=== PATIENT | female | born 1995 | race Caucasian/White ===

== ENCOUNTER 2024-11-23 19:51 | Outpatient (CLI) | payer BC, SELFPAY ==
[2024-11-23] VITALS (14 sets, daily range): BP systolic 111–129; BP diastolic 64–90; PULSE 94–114; O2SAT 100
--- OUTSIDE RECORDS SUMMARY | 2024-11-23 20:08 | XMS_ITS | Encounter Summary ---
Author Organization [facility] Address [address] [place] [address] Care Team Providers Care Group Fitness Instructor Name Role Phone Jeanette Garcia PAPERBOARD MACHINE OPERATOR Primary Care Provider [phone] Encounter Details Date Type Department Care Team (Late st Contact Info) Description 05/29/2024 Aqwise Message Grow Mobile [facility] [address] [place] [address] Chan, [facility] Provider Proof of name change Social History Tobacco Use Types Packs/Day Years Used Date Smoking Tobacco: Never Passive Smoke Exposure: Never Smokeless Tobacco: Never Alcohol Use Standard Drinks/Week Comments Yes 1.7 (1 standard drink = 0.6 oz p ure alcohol) Comments No Sex and Gender Information Value Date Recorded Sex Assigned at Not on file Legal Sex Female 7:52 PM CDT Gender Identity Not on file Sexual Orientation Not on file documented as of this encounter Plan of Treatment Not on file documented as of this encounter Visit Diagnoses Not on filedocumented in this encounter Care Teams Group Fitness Instructor Relationship Specialty Start Date End Date Jeanette Garcia, SVITLANA [address] [place] [address] PCP - General NURSE PRACTITIONER 01/20/24 documented as of this encounter
--- OUTSIDE RECORDS SUMMARY | 2024-11-23 20:08 | XMS_ITS | Data Portability ---
Author Organization [facility] Address [address] [place] [address] [place] [address] Care Team Providers Care Rn Residential Name Role Phone NORRIS BERG Primary Care Provider [phone] Assessment Encounter Date Assessment Date Assessment LastModified by Organization Details LastModified Time 10/12/2024 10/12/2024 Patient is ___weeks . Discussed plan. [email or web address] Not available 10/12/2024 09:54:37 Plan of Treatment Reminders Order Date Submit Date Provider Last Modified By Organization Details Last Modified Time Details Appointments OB ROUTINE 2024 03:00P Julissa FLORES MD Not available Not available Not available OB ROUTINE 2024 03:00P Julissa FLORES MD Not available Not available Not available OB ROUTINE 2024 03:15P Julissa FLORES MD Not available Not available Not available Lab None recorded . Referral None recorded . Procedures None recorded . Surgeries None recorded . Imaging US, obstetri c, follow-u p 2024 025 [email or web address] [address], [address], [place], [address], 11/19/2024 18:47:56 US, obstetri c, follow-u p 2024 025 [email or web address] [address], [address], [place], [address], 10/15/2024 21:28:09 Medication Orders None recorded . Patient TargetsNo targets recorded. Patient InstructionsNo instructions recorded. Reason for Referral None Reported. Results Created Date Observation Date Name Description Value Unit Range Abnormal Flag Note LastModifiedBy Organization Detail LastModifiedTime 09/25/1909/24/2024 HEMOG LOBIN (HGB) HGB 11.6 g/dL (based on docume nted legal sex) 11.6-1 5.4 Not Available [facility] (Lab) [address] [place], [address], 09/25/2024 12:55:13 09/25/1909/24/2024 HEMAT OCRIT (HCT) HCT 35.2 % (based on docume nted legal sex) 34.0-4 5.0 Not Available [facility] (Lab) [address] [place], [address], 09/25/2024 12:55:14 09/25/1909/24/2024 GTT - GESTA GERMAN L LEESA Burch, ACOG OB glucose, 1 hour screen 147 mg/dL 70-135 high Not Available [facility] (Lab) [address] [place], [address], 09/25/2024 12:55:14 09/25/1909/24/2024 HIV 1/2 ANTIG EN/AN TIBOD Y, REFLE X CONFI RMATI ON HIV antigen/anti body Nonrea ctive nonrea ctive HIV-1 antig en and HIV-1 /HIV- 2 antib odies were not detec ahmet. No labor atory evide nce of HIV infec tion. Not Available [facility] (Lab) [address], [place], [address], 09/25/2024 12:55:14 09/25/1909/24/2024 RPR SCREE N, REFLE X TITER /CONF IRMAT ION RPR qualitative Nonrea ctive nonrea ctive Not Available [facility] (Lab) [address] [place], [address], 09/25/2024 12:55:15 09/29/1909/28/2024 GTT - GESTA GERMAN L, 3 HOUR, ACOG glucose, fasting acog 77 mg/dL 70-94 Not Available [facility] (Lab) [address] [place], [address], 09/29/2024 04:43:16 09/29/19 25 09/28/2024 GTT - GESTA GERMAN L, 3 HOUR, ACOG glucose, 1 hour acog 144 mg/dL 70-179 Not Available [facility] (Lab) [address] [place], [address], 09/29/2024 04:43:16 09/29/19 25 09/28/2024 GTT - GESTA GERMAN L, 3 HOUR, ACOG glucose, 2 hour acog 126 mg/dL 70-154 Not Available [facility] (Lab) [address] [place], [address], 09/29/2024 04:43:16 09/29/19 25 09/28/2024 GTT - GESTA GERMAN L, 3 HOUR, ACOG glucose, 3 hour acog 120 mg/dL 70-139 Not Available [facility] (Lab) [address] [place], [address], 09/29/2024 04:43:16 11/20/19 25 11/19/2024 CULTU RE: GROUP B STREP SCREE N, REFLE X SUSCE PTIBI LITY result report SEE RESULT S BELOW abnormal Test: Cultu re: Group B Strep , Refle x Susce ptibi lity ([facility] ) Speci men Sourc e: Vagin a/Rec areli Speci men Type: Vagin al/Re ctal Speci men Date: 025 1541 Resul t Date: 2024 0959 Resul t Statu s: Final resul t Abnor mal: Yes Resul ting Lab: [facility] [address] [facility] [address] Tel: CULTU RE ----- ----- ----- --- Posit jacquelin for Strep tococ cus agala ctiae (Grou p B) (Abno rmal) Clind amyci n susce ptibl e, eryth romyc in resis tant. The clind amyci n induc tion test (D-t est) is negat jacquelin, there fore clind amyci n shoul d be clini keon effec tive again st this isola te. Not Available [facility] (Lab) [address], [place], [address], 11/23/2024 11:03:18 10/16/1910/15/2024 US, obste tric, follo w-up No observ ation record ed. [email or web address] [facility] [address], [place], [address], 10/15/2024 18:41:44 10/16/19 25 10/15/2024 US, obste tric, follo w-up No observ ation record ed. [email or web address] [address] [place], [address], 10/15/2024 21:32:58 11/20/19 25 11/19/2024 US, obste tric, follo w-up No observ ation record ed. [email or web address] [facility] [address], [place], [address], 11/19/2024 18:23:52 11/20/19 25 11/19/2024 US, obste tric, follo w-up No observ ation record ed. [email or web address] [address], [place], [address], 11/19/2024 18:53:45 Result Notes None recorded. Problems Name Problem SNOMED Code Status Onset Date Resolution Date Notes Provider Name and Address Organization Details Recorded Time 12338438 Active 2024 Viki barrera [facility] 16:21:17 Large for gestation age fetus 920050065 Active 98% at 24 weeks Nikita Connelly MD [address], [place], [address], [facility] 17:00:10 Problem Notes None recorded. Procedures Surgical History Date Name Laterality Status Provider Name and Address Organization Details Recorded Time 4 Date of Last Pap Smear completed [facility] 05/01/2024 14:36:16 2 Orthopedic Surgery completed [facility] 05/01/2024 14:54:06 Imaging Results None recorded. Procedure Notes None recorded. Medical Equipment None Reported. Allergies No known drug allergies Medications Name Sig Start Date Stop Date Status Note LastModified by Organization Details LastModified Time amitriptyline 50 mg tablet active Not Available Not Available No t Available ondansetron 8 mg disintegrating tablet TAKE 1 TABLET BY MOUTH 4 TIMES A DAY NEEDED active Not Available Not Available No t Available azelastine 137 mcg (0.1 %) nasal spray active Not Available Not Available Not Available sumatriptan active Not Available Not A vailable Not Available Fioricet active Not Available Not Avai lable Not Available Vitals Date Recorded Body weight Systolic And Diastolic Provider Name and Address Organization Details Last Updated DateTime 10/12/2024 16998.78777 g 138/90 mm[Hg] Tatiana Skinner [facility] 10/12/2024 09:55:37 Date Recorded Body weight Body mass index (BMI) Body height Systolic And Diastolic Provider Name and Address Organization Details Last Updated DateTime 11/02/2024 55038.230 624 g 33.5 kg/m2 162.56 cm 140/91 mm[Hg] Casi Romeroney [facility] 11/02/2024 14:36:46 Date Recorded Body height Body mass index (BMI) Body weight Systolic And Diastolic Provider Name and Address Organization Details Last Updated DateTime 11/19/2024 162.56 cm 34.2 kg/m2 10803.88 g 142/88 mm[Hg] KADE Lim [facility] 11/19/2024 16:25:08 Social History Question Answer Notes LastModified by Organizat ion Details LastModified Time Do You Have An Advance Directive? No [email or web address] Information n ot available 05/01/2024 Are You Blind Or Do You Have Difficulty Seeing? No [email or web address] Information not available 05/01/2024 What Is Your Level Of Caffeine Consumption? Moderate [email or web address] Information not available 05/01/2024 How Much Tobacco Do You Chew? None Information not available 05/01/2024 In The 14 Days Before Symptom Onset, Have You Had Close Contact With A Laboratory-confirme d COVID-19 While That Case Was Ill? No Information n ot available 05/01/2024 In The 14 Days Before Symptom Onset, Have You Had Close Contact With A Person Who Is Under Investigation For COVID-19 While That Person Was Ill? No [email or web address] Information not available 05/01/2024 Have You Been To An Area Known To Be High Risk For COVID-19? No [email or web address] Information not available 05/01/2024 Are You Deaf Or Do You Have Serious Difficulty Hearing? No [email or web address] Information not available 05/01/2024 What Type Of Diet Are You Following? REGULAR [email or web address] Information n ot available 05/01/2024 What Is The Highest Grade Or Level Of School You Have Completed Or The Highest Degree You Have Received? [id number] [email or web address] Information not available 05/01/2024 Are There Any Guns Present In Your Home? Yes [email or web address] Information not available 05/01/2024 Do You Use Protection During Sex? No [email or web address] Information not available 05/01/2024 Do You Use Your Seat Belt Or Car Seat Routinely? Yes [email or web address] Information not available 05/01/2024 Do You Have Smoke And Carbon Monoxide Detectors In Your Home? Yes Information not available 05/01/2024 How Much Tobacco Do You Smoke? No [email or web address] Information not available 05/01/2024 Do You Use Sunscreen Routinely? Yes [email or web address] Information not available 05/01/2024 Have You Used IV Drugs? No [email or web address] Information not available 05/01/2024 Sex: Unknown Functional Status Question Answer Note LastModified by Organizat ion Details LastModified Time Do you use any illicit or recreational drugs? No [email or web address] Information not available 05/01/2024 What is your level of alcohol consumption? Occasional [email or web address] Information not available 05/01/2024 Are you able to walk? YESWOREST [email or web address] Information not available 05/01/2024 What is your exercise level? Moderate [email or web address] Information not available 05/01/2024 Mental Status None recorded. Family History Relationship Description Onset Age of this Age Resolved Age Notes LastModified by Organization Details LastModified Time Unspecified Relation Family history unknown [email or web address] Not available 2023 14:36:16 Medical History Condition Response Headaches Y Gynecological History Statement/Question Response Abnormal Pap N Flow Moderate Date of LMP 03/07/2024 On BCP's at Conception? N N Was last menstrual period normal Y STIs/STDs N HPV Vaccine Y Duration of Flow (days) 4 Current Control Method Date of control 02/12/2024 Are cycles usually normal Y Frequency of Cycle (Q days) 28 Sexually Active? Y Age of first menstrual cycle 13 Date of Last Pap Smear 01/16/2024 Sexual Problems? N Desired Control Method None LMP Approximate N Obstetrics History GPAL:G 1 P 0 0 0 0 Past Encounters Encounter ID Performer Location Encounter Start Date Encounter Closed Date Diagnosis/Indication Diagnosis SNOMED-CT Code Diagnosis ICD10 Code Diagnosis Note [id number] RENUKA FLORES MD [facility] [address] [address] 05/01/2024 14:18:14 05/01/2024 14:41:41 [id number] RENUKA FLORES MD [facility] [address] [address] 05/01/2024 14:18:58 05/01/2024 15:46:12 test positive 553990652 Z32.01 1. Exam today within normal limits.2. Ultrasound today confirms GA and viability. EDC . GC/Kelvin a testing done: will f/u as indicated. 4. ACOG guidelines and plan of care for reviewed with patient. All questions answered.5 . Return to office at 12 weeks for new OB visit6. Will need new OB labs at next visit.7. Genetic screening: declines. Migraine 51938118 G43.90 9 - controlled on amitriptyl ine, PRN sumatripta n and fioricet- ok to continue amitriptyl ine, low risk of defects; possible small risk of PTL and FGR; ok for PRN sumatripta n; try to avoid fioricet if possible Nausea and vomiting 1693 1999 R11.2 - will trial zofran PRN [id number] Nikita Connelly MD [facility] [address],[place] [address] 06/01/2024 15:23:23 06/04/2024 08:22:04 screening 687370572 Z36.82 Z3A.12 [id number] MD [facility] [address] [address] 06/01/2024 15:25:00 06/01/2024 16:53:00 Routine care 691819242 Z34.91 [id number] RENUKA FLORES MD [facility] [address],[place] [address] 06/29/2024 15:48:13 07/02/2024 11:50:38 Routine care 276733577 Z34.91 [id number] Nikita Connelly MD [facility] [address],[place] [address] 07/23/2024 14:23:35 07/23/2024 15:38:06 screening for malformation 881611734 Z36.3 Z3A.19 [id number] RENUKA FLORES MD [facility] [address] [place] [address] 07/23/2024 14:27:16 07/23/2024 16:19:59 Routine care 335813856 Z34.91 [id number] Nikita Connelly MD [facility] [address] [address] 08/24/2024 15:19:27 08/24/2024 16:47:21 screening 200810763 Z36.2 O36.62X9 Z3A.24 [id number] MD [facility] [address] [address] 08/24/2024 15:20:13 08/27/2024 11:41:12 Routine care 876893785 Z34.02 [id number] MD [facility] [address] [address] 09/24/2024 14:50:50 09/24/2024 16:14:07 Nausea and vomiting 35257765 R11.2 [id number] MD [facility] [address],[place] [address] 10/12/2024 09:40:31 10/12/2024 10:48:27 Third trimester 42495550 Z34.03 Exceptiona lly large at 67892158 P08.0 [id number] Nikita Connelly MD [facility] [address],[place] [address] 10/15/2024 17:22:57 10/15/2024 18:14:20 Excessive growth affecting management of mother 21545237 O36.63X0 Z3A.31 [id number] MD [facility] [address],[place] [address] 11/02/2024 14:23:36 11/05/2024 07:37:14 Elevated blood-pressure reading without diagnosis of hypertension 519873103 R03.0 Gestation period, 34 weeks 09730253 Z3A.34 [id number] RENUKA FLORES MD [facility] [address],[place] [address] 11/19/2024 15:27:03 11/19/2024 16:09:45 Excessive growth affecting management of mother 70505040 O36.63X0 Z3A.36 [id number] RENUKA FLORES MD [facility] [address],[place] [address] 11/19/2024 15:27:14 11/22/2024 17:15:41 Third trimester 69080014 Z34.03 Health Concerns Section Related Observation LastModified by Organization Detai ls LastModified Time None Recorded Concern Status LastModified by Organization Details LastModified Time None Recorded Advance Directives Directive N: Payers Insurance Date Sequence Insurance Name Policy Number Policy Carranza Covered Member ID Carranza Member ID Guarantor Name 11/23/2024 1 [place] [id number] Servando Collins Alison [id number] Valentina Alison OBGyn Episode Ob Episode Information Episode Created Date Number of Fetuses Patient Bloodtype Patient rh Status Prepregnancy Weight lbs Domestic Partner Domestic Partner Phone Father Name Rock Singer Status 06/01/19 25 1 O Positive 173 Servando Alison OPEN Fetus Data First Name Last Name Admitted to NICU Weight (g) Sex Living Outcome Pediatric Complications Fetus ID Race Codes Race Delivery Type [id number] Problems Problem Notes Problem Name Start Date End Date Resolution Snomed Code Not e Large for gestation age fetus 98% at 24 weeks Bayron Calculation Initial Bayron Date Initial Exam Date Initial Exam Provider Initial Ultrasound Date Last Menstrual Period Date Ultra Sound Weeks Gestation 12/12/2024 06/01/2024 05/01/2024 03/07/2024 8 Eighteen To Twenty Week Bayron Update Ultra Sound Date Fundal Height At Umbil Quickening Date Ultra Sound Latest Weeks Gestation Final Bayron Confirmed By Final Bayron Confirmed Date Final Bayron Date Ultra Sound Latest Days Gestation 0 [email or web address] 06/30/2024 12/13/19 25 0 Pre-jane Flowsheet Flowsheet Date 06/01/2024 Mckenzie Score Blood Edema Fundus Height Fundus Units Glucose Ketones Leukocytes Nitrite Labor Signs Protein Cervic Dilation Cervic Effacement Cervic Station Type Weight in lbs Pre/Post Dialysis Refused BP Diastolic BP Location Tested BP Systolic BP Type Fetus Heart Rate Present Fetus Movement Comments Flowsheet Date 06/01/2024 Mckenzie Score Blood Edema Fundus Height Fundus Units Glucose Ketones Leukocytes Nitrite Labor Signs Protein Cervic Dilation Cervic Effacement Cervic Station Type Weight in lbs Pre/Post Dialysis Refused Weight 173.177769955645 BP Diastolic BP Location Tested BP Systolic BP Type 92 L arm 133 sitting Fetus Heart Rate Present A 146 Fetus Movement Comments Patient presents to [facility] care. otherwise uncomplicated. No nausea or cramping. NT/NB wnl today, declines NIPT. Will draw new OB labs today. RTC 4 weeks for routine care. Flowsheet Date 06/29/2024 Mckenzie Score Blood Edema Fundus Height Fundus Units Glucose Ketones Leukocytes Nitrite Labor Signs Protein Cervic Dilation Cervic Effacement Cervic Station neg none Type Weight in lbs Pre/Post Dialysis Refused 178.379456719884 BP Diastolic BP Location Tested BP Systolic BP Type 89 L arm 136 sitting Fetus Heart Rate Present A 145 Fetus Movement A No Comments Patient c/o slight nausea. N o cramping or bleeding. Still having some fatigue. New OB labs wnl. Discussed anatomy US for next visit. RTC 4 weeks. Flowsheet Date 07/23/2024 Mckenzie Score Blood Edema Fundus Height Fundus Units Glucose Ketones Leukocytes Nitrite Labor Signs Protein Cervic Dilation Cervic Effacement Cervic Station Type Weight in lbs Pre/Post Dialysis Refused BP Diastolic BP Location Tested BP Systolic BP Type Fetus Heart Rate Present Fetus Movement Comments Flowsheet Date 07/23/2024 Mckenzie Score Blood Edema Fundus Height Fundus Units Glucose Ketones Leukocytes Nitrite Labor Signs Protein Cervic Dilation Cervic Effacement Cervic Station neg none neg Type Weight in lbs Pre/Post Dialysis Refused Weight 179.715433485127 BP Diastolic BP Location Tested BP Systolic BP Type 82 R arm 139 sitting Fetus Heart Rate Present A Present Fetus Movement A No Comments Doing well, has not yet felt movement. No cramping or bleeding. Having a boy! Anatomy incomplete; need AA and 4CH views. EFW 84%. Repeat in 4 weeks to complete anatomy. RTC 4 weeks. GOing to [place] next month! Travel precautions reviewed. Flowsheet Date 08/24/2024 Mckenzie Score Blood Edema Fundus Height Fundus Units Glucose Ketones Leukocytes Nitrite Labor Signs Protein Cervic Dilation Cervic Effacement Cervic Station Type Weight in lbs Pre/Post Dialysis Refused BP Diastolic BP Location Tested BP Systolic BP Type Fetus Heart Rate Present Fetus Movement Comments Flowsheet Date 08/24/2024 Mckenzie Score Blood Edema Fundus Height Fundus Units Glucose Ketones Leukocytes Nitrite Labor Signs Protein Cervic Dilation Cervic Effacement Cervic Station Type Weight in lbs Pre/Post Dialysis Refused BP Diastolic BP Location Tested BP Systolic BP Type Fetus Heart Rate Present A 144 Fetus Movement Comments no complaints, no problems, routine care, no contractions, no vaginal bleeding, no loss of fluid, no cramping Flowsheet Date 09/24/2024 Mckenzie Score Blood Edema Fundus Height Fundus Units Glucose Ketones Leukocytes Nitrite Labor Signs Protein Cervic Dilation Cervic Effacement Cervic Station 28 cm Type Weight in lbs Pre/Post Dialysis Refused Weight 189.696277908678 BP Diastolic BP Location Tested BP Systolic BP Type 80 L arm 120 sitting Fetus Heart Rate Present A 145 Present Fetus Movement A Yes Comments no complaints, no problems, routine care, no contractions, no vaginal bleeding, no loss of fluid, no cramping Flowsheet Date 10/12/2024 Mckenzie Score Blood Edema Fundus Height Fundus Units Glucose Ketones Leukocytes Nitrite Labor Signs Protein Cervic Dilation Cervic Effacement Cervic Station Type Weight in lbs Pre/Post Dialysis Refused 189.954171922183 BP Diastolic BP Location Tested BP Systolic BP Type 90 L arm 138 sitting Fetus Heart Rate Present A 148 Present Fetus Movement A Yes Comments no complaints, no problems, routine care, no contractions, no vaginal bleeding, no loss of fluid, no cramping Flowsheet Date 10/15/2024 Mckenzie Score Blood Edema Fundus Height Fundus Units Glucose Ketones Leukocytes Nitrite Labor Signs Protein Cervic Dilation Cervic Effacement Cervic Station Type Weight in lbs Pre/Post Dialysis Refused BP Diastolic BP Location Tested BP Systolic BP Type Fetus Heart Rate Present Fetus Movement Comments Flowsheet Date 11/02/2024 Mckenzie Score Blood Edema Fundus Height Fundus Units Glucose Ketones Leukocytes Nitrite Labor Signs Protein Cervic Dilation Cervic Effacement Cervic Station Type Weight in lbs Pre/Post Dialysis Refused 195.230596589706 BP Diastolic BP Location Tested BP Systolic BP Type 91 L arm 140 sitting Fetus Heart Rate Present Fetus Movement A Yes Comments Doing well, good movem ent. No cramping or bleeding. Discussed elevated BP today, will continue to monitor closely. Asymptomatic. Discussed warning signs. Discussed GBS swab for next visit. RTC 2 weeks. Flowsheet Date 11/19/2024 Mckenzie Score Blood Edema Fundus Height Fundus Units Glucose Ketones Leukocytes Nitrite Labor Signs Protein Cervic Dilation Cervic Effacement Cervic Station Type Weight in lbs Pre/Post Dialysis Refused BP Diastolic BP Location Tested BP Systolic BP Type Fetus Heart Rate Present Fetus Movement Comments Flowsheet Date 11/19/2024 Mckenzie Score Blood Edema Fundus Height Fundus Units Glucose Ketones Leukocytes Nitrite Labor Signs Protein Cervic Dilation Cervic Effacement Cervic Station Type Weight in lbs Pre/Post Dialysis Refused Weight 199.363446789449 BP Diastolic BP Location Tested BP Systolic BP Type 88 L arm 142 sitting Fetus Heart Rate Present A Present Fetus Movement A Yes Comments Doing well, good movem ent. No cramping or bleeding. EW 95%, AC 99%. Considering 39 week induction. GBS collected today. RTC 1 week. Menstrual History Last Menstrual Date Menses Monthly On Bcp Conception Prior Menses Frequency Hcg Plus Date Menarche Onset Age 1003/07/20[birth year] Delivery Information Delivery Date Delivery Type Labor Anesthesia Weeks Gestation Incision Type Labor Labor Length Hrs Delivered By Post Complications Tubal Sterilization Discharge Date Comments Discharge Information Feeding Method Contraceptive Method Maternal HG B and HCT Levels
--- OUTSIDE RECORDS SUMMARY | 2024-11-23 20:08 | XMS_ITS | Clinical Summary ---
Author Organization [facility] Address [address] [place] [address] Care Team Providers Care Neonatal Pediatric Nurse Name Role Phone Jeanette Garcia TOOL REPAIRER BENCH Primary Care Provider Allergies Active Allergy Reactions Criticality Noted Date Comments Nickel Rash Low 06/18/2011 Medications SUMAtriptan (IMITREX) 50 MG tablet Active butalbital-aceta minophen-caffein e (FIORICET) 50-300-40 MG capsuleIndicatio ns:Migraine without aura, with intractable migraine, so stated, with status migrainosus Take 1 capsule by mouth every 6 (six) hours as needed for Migraine or Headaches. 120 capsule 1 4 Active azelastine 0.1 % nasal sprayIndications :Nasal congestion 2 sprays by Nasal route 2 (two) times daily as needed for Rhinitis. Use in each nostril as directed 10 mL 3 5 Active amitriptyline (ELAVIL) 50 MG tabletIndication s:Migraine without aura, with intractable migraine, so stated, with status migrainosus TAKE 1 TABLET BY MOUTH EVERY DAY 90 tablet 1 5 Active Encounters Date Type Department Care Team Description 09/20/2024 Telephone [facility] - [place] [address] [address] [place] [address] Jeanette Garcia, TOOL REPAIRER BENCH Appointment Request from Last 3 Months Family History Medical History Relation Comments Diabetes Mother Relation Status Comments Mother Social History Tobacco Use Types Packs/Day Years Used Date Smoking Tobacco: Never Passive Smoke Exposure: Never Smokeless Tobacco: Never Tobacco Cessation:Counseling Given: No Alcohol Use Standard Drinks/Week Comments Yes 1.7 (1 standard drink = 0.6 oz p ure alcohol) Comments No Sex and Gender Information Value Date Recorded Sex Assigned at Not on file Legal Sex Female 7:52 PM CDT Gender Identity Not on file Sexual Orientation Not on file Last Filed Vital Signs Vital Sign Reading Time Taken Comments Blood Pressure 135/92 05/28/2024 1:26 PM STRIP MACHINE TENDER Pulse 93 05/28/2024 1:26 PM STRIP MACHINE TENDER Temperature 37.4 C (99.4 F) 05/28/2024 1:26 PM STRIP MACHINE TENDER Respiratory Rate 19 05/28/2024 1:26 PM STRIP MACHINE TENDER Oxygen Saturation 99% 05/28/2024 1:26 PM STRIP MACHINE TENDER Inhaled Oxygen Concentration - - Weight 79.2 kg (174 lb 9.6 oz) 05/28/2024 1:26 P M STRIP MACHINE TENDER Height 162.6 cm (5' 4) 05/28/2024 1:26 PM STRIP MACHINE TENDER Body Mass Index 29.97 05/28/2024 1:26 PM STRIP MACHINE TENDER Plan of Treatment Health Maintenance Due Date Last Done Comments Cervical Cancer Screening Pap Smear (Age 21 to 29) Every 3 Years 1996 Cervical Cancer Screening 1996 COVID-19 Vaccine ( season) 2024 04/05/2022, 04/16/2021, 08/22/2020, Additional history exists PHQ-2 (Physician [place]) 05/16/2024 Annual Physical 01/19/2025 01/20/2024 DTaP, Tdap and Td Vaccines (8 - Td or Tdap) 11/03/2028 11/03/2018, 01/20/2007, 01/03/2001, Additional history exists Hepatitis B Vaccines Completed 1996, 1996, 1996 HPV Vaccines Completed 10/15/2011, 04/16, 10/15/2010 Meningococcal Vaccine Completed 02/25/2012, 008 Hepatitis C Completed 01/20/2024 Meningococcal B Vaccine Aged Out No l onger eligible based on patient's age to complete this topic Pneumococcal Vaccine: Pediatrics (0 to 5 Years) and At-Risk Patients (6 to 49 Years) Aged Out No longer eligible based on patient's age to complete this topic RSV Immunizations Under 20 Months Aged Out No longer eligible based on patient's age to complete this topic Procedures Procedure Name Priority Date/Time Associated Diagnosis Comments HEPATITIS C ANTIBODY Routine 01/20/2024 1:34 PM CDT Need for hepatitis C screening test from Last 3 Months or Most Recently Relevant to Health Maintenance Results * HEPATITIS C ANTIBODY (01/20/2024 1:34 PM CDT) HEPATITIS C AB NON-REACTI VE NON-REACT JACQUELIN 01/20/2024 9:41 PM CDT [facility] Comment: ANTIBODIES TO HCV NOT DETECTED. DOES NOT EXCLUDE THE POSSIBILITY OF EXPOSURE TO HCV. 01/20/2024 1:34 PM CDT us Jeanette Garcia NP LABORATORY Final Resul t [facility] [address] [place] [id number], [id number] from Last 3 Months or Most Recently Relevant to Health Maintenance Insurance [facility] [place] [id number] [facility] Care Teams Neonatal Pediatric Nurse Relationship Specialty Start Date End Date Jeanette Garcia NP [address] [place] [address] PCP - General NURSE PRACTITIONER 01/20/24
== END 2024-11-23 21:30 | disposition home or self-care (01) ==
LOC: ANHOBOP 20:07 → ANHOBPP 20:08
PROVIDERS: Visit Provider Obstetrics & Gynecology
DX: O36.8190 Decreased fetal movements, unspecified trimester, not applicable or unspecified (principal)
CPT/HCPCS: 99199

== ENCOUNTER 2024-12-05 05:56 | Inpatient (IN) | payer BC, SELFPAY ==
[2024-12-05] VITALS (225 sets, daily range): BP systolic 89–156; BP diastolic 37–105; PULSE 28–162; TEMP 36.4–37.6; O2SAT 87–100
--- NOTE | ~2024-12-05 | XR_ITS ---
XR abdomen/kub 1V 12/06/2024 05:56 Indication: AP portable chest Procedure: KUB Comparison: No prior studies for comparison. Findings: There is a serpiginous linear structure in the pelvis, likely foreign body. Nonspecific bow el gas pattern. Enlarged masslike density in the lower abdomen centrally, likely enlarged uterus. Impression: 1: Serpiginous linear structure in the pelvis located centrally, likely foreign body. Clinically rossy elate. Reviewed, dictated and finalized at location A. Impression: 1: Serpiginous linear structure in the pelvis located centrally, likely foreign body. Clinically correlate.
--- NOTE | ~2024-12-05 | XR_ITS ---
XR abdomen/kub 1V 12/06/2024 05:56 Indication: Post removal vaginal foreign body Procedure: KUB Comparison: 12/06/2024 Findings: Interval removal of serpiginous for body in the pelvis. Nonspecific bowel gas pattern. Prob able enlarged uterus. There are calcified phleboliths in the pelvis. Impression: 1: Interval removal of serpiginous radiodensity in the pelvis, consistent with foreign body removal. Reviewed, dictated and finalized at location A. Impression: 1: Interval removal of serpiginous radiodensity in the pelvis, consistent with foreign body removal.
--- OUTSIDE RECORDS SUMMARY | 2024-12-05 06:01 | XMS_ITS | Encounter Summary ---
Author Organization [facility] Address [address] [place] [address] Care Team Providers Care Maintenance Controller Name Role Phone Jeanette Garcia TREATING ENGINEER HELPER Primary Care Provider [phone] Encounter Details Date Type Department Care Team (Late st Contact Info) Description 05/29/2024 C3DNA Message Stupeflix [facility] [employer] [facility] [address] [address] Chan, [facility] Provider Proof of name change Social History [...] on filedocumented in this encounter Care Teams Maintenance Controller Relationship Specialty Start Date End Date Jeanette Garcia, VSITLANA [address] [place] [address] PCP - General NURSE PRACTITIONER 01/20/24 documented as of this encounter
--- OUTSIDE RECORDS SUMMARY | 2024-12-05 06:01 | XMS_ITS | Data Portability ---
Author Organization [facility] Address [address] [place] [address] [place] [address] Care Team Providers Care Importer Or Exporter Name Role Phone ANDREWS BERGELLE Primary Care Provider [phone] Assessment No assessment recorded. Plan of Treatment Reminders Order Date Submit Date Provider Last Modified By Organization Details Last Modified Time Details Appointments INDUCTION 2024 12:01A Julissa FLORES MD Not available Not available Not available OB ROUTINE 2024 03:00P Julissa FLORES MD Not available Not available Not available INDUCTION 2024 04:00P Julissa FLORES MD Not available Not available Not available OB ROUTINE 2024 03:15P Julissa FLORES MD Not available Not available Not available Lab None recorded. Referral None recorded. Procedures None recorded. Surgeries None recorded. Imaging US, obstetric , follow-up 2024 025 [email or web address] [facility] [address], [place], [address], 11/19/2024 18:47:56 US, obstetric , follow-up 2024 025 [email or web address] [facility] [address], [place], [address], 10/15/2024 21:28:09 Medication Orders None recorded. Patient TargetsNo targets recorded. Patient InstructionsNo instructions recorded. Reason for Referral None Reported. Results Created Date Observation Date Name Description Value Unit Range Abnormal Flag Note LastModifiedBy Organization Detail LastModifiedTime 09/25/192025 HEMOG LOBIN (HGB) HGB 11.6 g/dL (based on docume nted legal sex) 11.6-[address] [facility] (Lab) [address], [place], [address], 09/25/2024 12:55:13 09/25/19 25 09/24/2024 HEMAT OCRIT (HCT) HCT 35.2 % (based on docume nted legal sex) 34.0-[address] [facility] (Lab) [address], [place], [address], 09/25/2024 12:55:14 09/25/19 25 09/24/2024 GTT - GESTA GERMAN L SCREE N, ACOG OB glucose, 1 hour screen 147 mg/dL 70-135 high Not Available [facility] (Lab) [address], [place], [address], 09/25/2024 12:55:14 09/25/19 25 09/24/2024 HIV 1/2 ANTIG EN/AN TIBOD Y, REFLE X CONFI RMATI ON HIV antigen/anti body Nonrea ctive nonrea ctive HIV-1 antig en and HIV-1 /HIV- 2 antib odies were not detec ahmet. No labor atory evide nce of HIV infec tion. Not Available [facility] (Lab) [address], [place], [address], 09/25/2024 12:55:14 09/25/19 25 09/24/2024 RPR SCREE N, REFLE X TITER /CONF IRMAT ION RPR qualitative Nonrea ctive nonrea ctive Not Available [facility] (Lab) [address] [place], [address], 09/25/2024 12:55:15 09/29/19 25 09/28/2024 GTT - GESTA GERMAN L, 3 HOUR, ACOG glucose, fasting acog 77 mg/dL 70-94 Not Available [facility] (Lab) [address], [place], [address], 09/29/2024 04:43:16 09/29/19 25 09/28/2024 GTT - GESTA GERMAN L, 3 HOUR, ACOG glucose, 1 hour acog 144 mg/dL 70-179 Not Available [facility] (Lab) [address], [place], [address], 09/29/2024 04:43:16 09/29/19 25 09/28/2024 GTT - GESTA GERMAN L, 3 HOUR, ACOG glucose, 2 hour acog 126 mg/dL 70-154 Not Available [facility] (Lab) [address], [place], [address], 09/29/2024 04:43:16 09/29/19 25 09/28/2024 GTT - GESTA GERMAN L, 3 HOUR, ACOG glucose, 3 hour acog 120 mg/dL 70-139 Not Available [facility] (Lab) [address] [place], [address], 09/29/2024 04:43:16 11/20/19 25 11/19/2024 CULTU RE: GROUP B STREP SCREE N, REFLE X SUSCE PTIBI LITY result report SEE RESULT S BELOW abnormal Test: Cultu re: Group B Strep , Refle x Susce ptibi lity ([facility] ) Speci men Sourc e: Vagin a/Rec areli Speci men Type: Vagin al/Re ctal Speci men Date: 025 1541 Resul t Date: 2024 0959 Resul t Statu s: Final resul t Abnor mal: Yes Philly pierre Lab: [facility] [address] [facility] [address] Tel: CULTU RE ----- ----- ----- --- Posit jacquelin for Strep tococ cus agala ctiae (Grou p B) (Abno rmal) Clind amyci n susce ptibl e, eryth romyc in resis tant. The clind amyci n induc tion test (D-t est) is negat jacquelin, there fore clind amyci n shoul d be clini keon effec tive again st this isola te. Not Available [facility] (Lab) [address], [place], [address], 11/23/2024 11:03:18 10/16/19 25 10/15/2024 US, obste tric, follo w-up No observ ation record ed. [email or web address] [facility] [address], [place], [address], 10/15/2024 18:41:44 10/16/19 25 10/15/2024 , obste tric, follo w-up No observ ation record ed. [email or web address] [facility] [address], [place], [address], 10/15/2024 21:32:58 11/20/19 25 11/19/2024 , obste tric, follo w-up No observ ation record ed. [email or web address] [facility] [address], [place], [address], 11/19/2024 18:23:52 11/20/19 25 11/19/2024 , obste tric, follo w-up No observ ation record ed. [email or web address] [facility] [address], [place], [address], 11/19/2024 18:53:45 Result Notes None recorded. Problems Name Problem SNOMED Code Status Onset Date Resolution Date Notes Provider Name and Address Organization Details Recorded Time Large for gestation age fetus Active 98% at 24 weeks Nikita Connelly MD [address], [place], [address], [place] [facility] 04/11/202 5 17:00:10 11279354 Active 2024 [facility] 16:21:17 Problem Notes None recorded. Procedures Surgical History Date Name Laterality Status Provider Name and Address Organization Details Recorded Time 4 Date of Last Pap Smear completed [facility] 05/01/2024 14:36:16 2 Orthopedic Surgery completed [facility] 05/01/2024 14:54:06 Imaging Results None recorded. [...] Not Available Vitals Date Recorded Body weight Body mass index (BMI) Body height Systolic And Diastolic Provider Name and Address Organization Details Last Updated DateTime 11/02/2024 65103.230 624 g 33.5 kg/m2 162.56 cm 140/91 mm[Hg] Casi Arreola [facility] 11/02/2024 14:36:46 Date Recorded Body height Body mass index (BMI) Body weight Systolic And Diastolic Provider Name and Address Organization Details Last Updated DateTime 11/19/2024 162.56 cm 34.2 kg/m2 04003.88 g 142/88 mm[Hg] KADE Lim [facility] 11/19/2024 16:25:08 Date Recorded Body height Body mass index (BMI) Body weight Systolic And Diastolic Provider Name and Address Organization Details Last Updated DateTime 11/28/2024 162.56 cm 34.8 kg/m2 39092.25 g 126/86 mm[Hg] KADE Lim [facility] 11/28/2024 16:17:07 Social History Question Answer Notes LastModified by Organizat ion Details LastModified Time Do You Have An Advance Directive? No Information n ot available 05/01/2024 Are You Blind Or Do You Have Difficulty Seeing? No Information not available 05/01/2024 What Is Your Level Of Caffeine Consumption? Moderate [email or web address] Information not available 05/01/2024 How Much Tobacco Do You Chew? None [email or web address] Information not available 05/01/2024 In The 14 Days Before Symptom Onset, Have You Had Close Contact With A Laboratory-confirme d COVID-19 While That Case Was Ill? No Information n ot available 05/01/2024 In The 14 Days Before Symptom Onset, Have You Had Close Contact With A Person Who Is Under Investigation For COVID-19 While That Person Was Ill? No [email or web address] Information not available 05/01/2024 Have You Been To An Area Known To Be High Risk For COVID-19? No [email or web address] Information not available 05/01/2024 Are You Deaf Or Do You Have Serious Difficulty Hearing? No [email or web address] Information not available 05/01/2024 What Type Of Diet Are You Following? REGULAR [email or web address] Information n ot available 05/01/2024 What Is The Highest Grade Or Level Of School You Have Completed Or The Highest Degree You Have Received? [id number] Information not available 05/01/2024 Are There Any Guns Present In Your Home? Yes [email or web address] Information not available 05/01/2024 Do You Use Protection During Sex? No [email or web address] Information not available 05/01/2024 Do You Use Your Seat Belt Or Car Seat Routinely? Yes [email or web address] Information not available 05/01/2024 Do You Have Smoke And Carbon Monoxide Detectors In Your Home? Yes [email or web address] Information not available 05/01/2024 How Much Tobacco Do You Smoke? No [email or web address] Information not available 05/01/2024 Do You Use Sunscreen Routinely? Yes [email or web address] Information not available 05/01/2024 Have You Used IV Drugs? No [email or web address] Information not available 05/01/2024 Sex: Unknown Functional Status Question Answer Note LastModified by Organizat ion Details LastModified Time Do you use any illicit or recreational drugs? No Information not available 05/01/2024 What is your level of alcohol consumption? Occasional [email or web address] Information not available 05/01/2024 Are you able to walk? YESWOREST [email or web address] Information not available 05/01/2024 What is your exercise level? Moderate [email or web address] Information not available 05/01/2024 Mental Status None recorded. Family History Relationship Description Onset Age of this Age Resolved Age Notes LastModified by Organization Details LastModified Time Unspecified Relation Family history unknown [email or web address] Not available 2023 14:36:16 Medical History Condition [...] SNOMED-CT Code Diagnosis ICD10 Code Diagnosis Note [id number] RENUKA FLORES MD [facility] [address] [address] 05/01/2024 14:18:14 05/01/2024 14:41:41 [id number] RENUKA FLORES MD [facility] [address] [address] 05/01/2024 14:18:58 05/01/2024 15:46:12 test positive 249180529 Z32.01 1. Exam today within normal limits.2. Ultrasound today confirms GA and viability. EDC . GC/Kelvin a testing done: will f/u as indicated. 4. ACOG guidelines and plan of care for reviewed with patient. All questions answered.5 . Return to office at 12 weeks for new OB visit6. Will need new OB labs at next visit.7. Genetic screening: declines. Migraine 22106691 G43.90 9 - controlled on amitriptyl ine, PRN sumatripta n and fioricet- ok to continue amitriptyl ine, low risk of defects; possible small risk of PTL and FGR; ok for PRN sumatripta n; try to avoid fioricet if possible Nausea and vomiting 1693 1999 R11.2 - will trial zofran PRN [id number] Nikita [facility] MD [facility] [address],[place] [address] 06/01/2024 15:23:23 06/04/2024 08:22:04 screening 177182305 Z36.82 Z3A.12 [id number] RENUKA FLORES MD [facility] [address],[place] [address] 06/01/2024 15:25:00 06/01/2024 16:53:00 Routine care 419275082 Z34.91 [id number] RENUKA FLORES MD [facility] [address],[place] [address] 06/29/2024 15:48:13 07/02/2024 11:50:38 Routine care 236064055 Z34.91 [id number] Nikita [facility] MD [facility] [address],[place] [address] 07/23/2024 14:23:35 07/23/2024 15:38:06 screening for malformation 154610418 Z36.3 Z3A.19 [id number] RENUKA FLORES MD [facility] [address],[place] [address] 07/23/2024 14:27:16 07/23/2024 16:19:59 Routine care 013443987 Z34.91 [id number] MD [facility] [address],[place] [address] 08/24/2024 15:19:27 08/24/2024 16:47:21 screening 263084224 Z36.2 O36.62X9 Z3A.24 [id number] MD [place] [address],[place] [address] 08/24/2024 15:20:13 08/27/2024 11:41:12 Routine care 003894521 Z34.02 [id number] MD [place] [address],[place] [address] 09/24/2024 14:50:50 09/24/2024 16:14:07 Nausea and vomiting 31470212 R11.2 [id number] MD [place] [address],[place] [address] 10/12/2024 09:40:31 10/12/2024 10:48:27 Third trimester 04645475 Z34.03 Exceptiona lly large at 82573380 P08.0 [id number] Nikita [facility] MD [facility] [address],[place] [address] 10/15/2024 17:22:57 10/15/2024 18:14:20 Excessive growth affecting management of mother 42470192 O36.63X0 Z3A.31 [id number] MD [place] [address],[place] [address] 11/02/2024 14:23:36 11/05/2024 07:37:14 Elevated blood-pressure reading without diagnosis of hypertension 930358808 R03.0 Gestation period, 34 weeks 33063725 Z3A.34 [id number] MD [place] [address],[place] [address] 11/19/2024 15:27:03 11/19/2024 16:09:45 Excessive growth affecting management of mother 14697872 O36.63X0 Z3A.36 [id number] MD [place] G[place] [address],[place] [address] 11/19/2024 15:27:14 11/22/2024 17:15:41 Third trimester 83624520 Z34.03 [id number] MD [place] [facility] [address] [address] 11/28/2024 15:56:10 11/28/2024 16:45:03 Large for gestation age fetus 328837668 O36.60X0 Gestation period, 38 weeks 95838458 Z3A.38 Health Concerns Section Related Observation LastModified by Organization Detai ls LastModified Time None Recorded Concern Status LastModified by Organization Details LastModified Time None Recorded Advance Directives Directive N: Payers Insurance Date Sequence Insurance Name Policy Number Policy Carranza Covered Member ID Carranza Member ID Guarantor Name 12/02/2024 1 [place] [id number] Servando Rosas [id number] Valentina Rosas OBGyn Episode Ob Episode Information Episode Created Date Number of Fetuses Patient Bloodtype Patient rh Status Prepregnancy Weight lbs Domestic Partner Domestic Partner Phone Father Name Director Payment Status 06/01/19 25 1 O Positive 173 Servando Rosas OPEN Fetus Data First Name Last Name Admitted to NICU Weight (g) Sex Living Outcome Pediatric Complications Fetus ID Race Codes Race Delivery Type [id number] Problems Problem Notes Problem Name Start Date End Date Resolution Snomed Code Not e Large for gestation age fetus [id number] 98% at 24 weeks [place]ron Calculation Initial [...] Date Ultra Sound Latest Days Gestation 0 [email or web address] 06/30/2024 12/13/19 25 0 Pre- Flowsheet Flowsheet Date 06/01/2024 Mckenzie Score Blood [...] Weight in lbs Pre/Post Dialysis Refused Weight 173.300438294119 BP Diastolic BP Location Tested BP Systolic BP Type 92 L arm 133 sitting Fetus Heart Rate Present A 146 Fetus Movement Comments Patient presents to [facility] care. otherwise uncomplicated. No nausea or cramping. NT/NB wnl today, declines NIPT. Will draw new OB labs today. RTC 4 weeks for routine care. Flowsheet Date 06/29/2024 Mckenzie Score Blood Edema Fundus Height Fundus Units Glucose Ketones Leukocytes Nitrite Labor Signs Protein Cervic Dilation Cervic Effacement Cervic Station neg none Type Weight in lbs Pre/Post Dialysis Refused 178.400931447022 BP Diastolic BP Location Tested BP Systolic [...] Weight in lbs Pre/Post Dialysis Refused Weight 179.966187996140 BP Diastolic BP Location Tested BP Systolic BP Type 82 R arm 139 sitting Fetus Heart Rate Present A Present Fetus Movement A No Comments Doing well, has not yet felt movement. No cramping or bleeding. Having a boy! Anatomy incomplete; need AA and 4CH views. EFW 84%. Repeat in 4 weeks to complete anatomy. RTC 4 weeks. GOing to [place] next month! Travel precautions reviewed. Flowsheet Date [...] Weight in lbs Pre/Post Dialysis Refused Weight 189.798472764258 BP Diastolic BP Location Tested BP Systolic [...] Type Weight in lbs Pre/Post Dialysis Refused 189.697996379652 BP Diastolic BP Location Tested BP Systolic [...] Type Weight in lbs Pre/Post Dialysis Refused 195.495385674587 BP Diastolic BP Location Tested BP Systolic [...] Weight in lbs Pre/Post Dialysis Refused Weight 199.936660835906 BP Diastolic BP Location Tested BP Systolic BP Type 88 L arm 142 sitting Fetus Heart Rate Present A Present Fetus Movement A Yes Comments Doing well, good movem ent. No cramping or bleeding. EW 95%, AC 99%. Considering 39 week induction. GBS collected today. RTC 1 week. Flowsheet Date 11/28/2024 Mckenzie Score Blood Edema Fundus Height Fundus Units Glucose Ketones Leukocytes Nitrite Labor Signs Protein Cervic Dilation Cervic Effacement Cervic Station neg trace Type Weight in lbs Pre/Post Dialysis Refused Weight 203.595352777462 BP Diastolic BP Location Tested BP Systolic BP Type 86 L arm 126 sitting Fetus Heart Rate Present A 135 Fetus Movement A Yes Comments Good movement. No cram ping or bleeding. Would like 39 week induction, will check on availability at [place]. GBS positive, discussed antibiotics in labor. RTC 1 week. Menstrual History Last Menstrual [...]
--- OUTSIDE RECORDS SUMMARY | 2024-12-05 06:01 | XMS_ITS | Clinical Summary ---
Author Organization [facility] Address [address] [place] [address] Care Team Providers Care Development Engineer Name Role Phone Jeanette Garcia MANAGER SECURITY AND SAFETY Primary Care Provider Allergies Active Allergy Reactions [...] Type Department Care Team Description 09/20/2024 Telephone [facility] Multispecialty Care - [place] [address] [address] [place] [address] Jeanette Garcia, MANAGER SECURITY AND SAFETY Appointment Request from Last 3 Months Family [...] Comments Blood Pressure 135/92 05/28/2024 1:26 PM KILN STOKER Pulse 93 05/28/2024 1:26 PM KILN STOKER Temperature 37.4 C (99.4 F) 05/28/2024 1:26 PM KILN STOKER Respiratory Rate 19 05/28/2024 1:26 PM KILN STOKER Oxygen Saturation 99% 05/28/2024 1:26 PM KILN STOKER Inhaled Oxygen Concentration - - Weight 79.2 kg (174 lb 9.6 oz) 05/28/2024 1:26 P M KILN STOKER Height 162.6 cm (5' 4) 05/28/2024 1:26 PM KILN STOKER Body Mass Index 29.97 05/28/2024 1:26 PM KILN STOKER Plan of Treatment Health Maintenance Due Date Last Done Comments Cervical Cancer Screening Pap Smear (Age 21 to 29) Every 3 Years 1996 Cervical Cancer Screening 1996 COVID-19 Vaccine ( season) 2024 04/05/2022, 04/16/2021, 08/22/2020, Additional history exists PHQ-2 (Physician [place]) 05/16/2024 Annual Physical 01/19/2025 01/20/2024 DTaP, Tdap [...] VE NON-REACT JACQUELIN 01/20/2024 9:41 PM CDT [facility] Comment: ANTIBODIES TO HCV NOT DETECTED. DOES NOT EXCLUDE THE POSSIBILITY OF EXPOSURE TO HCV. 01/20/2024 1:34 PM CDT us Jeanette Garcia NP LABORATORY Final Resul t [facility] [address] [place] [id number], [id number] from Last 3 Months or Most Recently Relevant to Health Maintenance Insurance [facility] [place] [id number] [facility] Care Teams Development Engineer Relationship Specialty Start Date End Date Jeanette Garcia NP [address] [place] [address] PCP - General NURSE PRACTITIONER 01/20/24
--- NOTE | 2024-12-05 06:25 | LDADM ---
This patient, Valentina Rosas, was admitted to Labor/Delivery/Recovery 108 on 12/05/24 at 05:56. Plans for labor, pain management and were discussed with patient. Patient/family oriented to hospital policies and general routines including ID bracelet, bed and alarms, visiting hours, pain management, procedures, bathroom and other care routines, personal items, smoking policy, room service/diet and guest tray routines, security routines, and visiting hours. Patient/Family are encouraged to report perceived risks to care and to ask questions if they do not understand what they are told or what they should do. See OBIX for further documentation.
--- NOTE | 2024-12-05 06:30 | WPDANESEPP ---
Anes - Eval Pre Procedure Procedure: labor pain management Date/Time: 12/05/24 06:30 Surgeon: Usman Preop Diagnosis: pain during labor Pre Op Diagnosis: IOL Patient Data Age: 29 Gender: F Height: Weight: Allergies Allergy/AdvReac Type Severity Reaction Status Date / Time No Known Allergies Allergy Verified 11/23/24 12:54 Home Medications ?Medication ?Instructions ?Recorded ?Confirmed ?Type amitriptyline 50 mg tablet 50 mg PO HS 11/23/24 11/23/24 History vit no.95-ferrous 1 tablet PO DAILY 11/23/24 11/23/24 History fumarate 28 mg-folic acid 800 mcg tablet () Patient hx anesthesia problems: none Family hx anesthesia problems: none Results Review: All pre-operative results and documents have been reviewed as part of the pre-operative evaluation. PMFSH Family History Family History Mother Diabetes mellitus Social History Social History Substance use: never Spiritual care concerns: No Exam Day of Procedure 12/05/24 06:30
[2024-12-05 06:37] LABS: Hematocrit 30.5 % (37.0-47.0); Hemoglobin 9.5 g/dL (12.0-15.0); Immature Granulocyte Percent A 1.2 % (0-0.5); Lymphocytes Absolute Auto 1.54 K/mm3 (0.9-3.2); Mean Corpuscular HGB Conc 31.1 g/dl (32-36); Mean Corpuscular Hemoglobin 25.5 pg (26-34); Mean Corpuscular Volume 82.0 fl (80-100); Nucleated Red Blood Cells Absolute Auto 0.060 K/mm3 (0.0-0.012); Nucleated Red Blood Cells Perc 1.0 % (0.0-0.2); Platelet Count Result 209 k/mm3 (150-375); Red Blood Count 3.72 M/mm3 (4.2-5.4); White Blood Count 6.0 K/mm3 (4.5-10.0)
[2024-12-05 07:43] LABS: Syphilis IgG/IgM Antibody Non-Reactive (Nonreactive)
[2024-12-05] MEDS: AMPICILLIN SODIUM 2 GM in SODIUM CHLORIDE 0.9% IV 100 ML 200 ML IVPB (08:48)
[2024-12-05] MEDS: LACTATED RINGERS 1,000 ML 125 ML IV CONT ×4 (08:48→23:41)
--- NOTE | 2024-12-05 10:16 | PM.IMHP ---
H&P: HPI History of Present Illness Date/Time: 12/05/24 10:16 Chief Complaint: elective induction of labor Narrative: Patient is a 29 year old female who presents for elective induction of labor. Her has been complicated by suspected LGA fetus, with most recent EFW 95% with AC 99%. Otherwise, no complications. Denies strong contractions, leakage of fluid or vaginal bleeding. Good movement. Review of Systems Review of Systems: All systems reviewed & are unremarkable except as noted in HPI and below PMFSH Family History Family History Mother Diabetes mellitus Social History Social History Smoking status: Never smoker Substance use: never Do You Feel Safe in your Home?: Yes Lack of Transportation: No Lack of Food: Never True Current Housing: I Have Housing Concerned About Future Housing: No Difficulty Paying Gas/Electric Bills: No Difficulty Paying for Meds: No Currently Unemployed: No Education: Master's Degree or Higher Difficulty w/ Childcare or Family Care: No Spiritual care concerns: No Meds Home Medications and Allergies Home Medications ?Medication ?Instructions ?Recorded ?Confirmed ?Type amitriptyline 50 mg tablet 50 mg PO HS 11/23/24 12/05/24 History vit no.95-ferrous 1 tablet PO DAILY 11/23/24 12/05/24 History fumarate 28 mg-folic acid 800 mcg tablet () Allergies Allergy/AdvReac Type Severity Reaction Status Date / Time No Known Allergies Allergy Verified 11/23/24 12:54 Vital Signs Vital Signs - 24 hr 12/05/24 06:23 12/05/24 06:38 12/05/24 06:45 Pulse Rate 114 H 114 H Blood Pressure 116/73 125/71 Oxygen Delivery Room Air 12/05/24 07:01 12/05/24 07:15 12/05/24 07:31 Pulse Rate 93 100 85 Blood Pressure 116/74 120/80 127/86 Oxygen Delivery 12/05/24 08:01 12/05/24 08:16 12/05/24 08:31 Pulse Rate 96 97 102 H Blood Pressure 122/85 121/78 124/69 Oxygen Delivery 12/05/24 08:46 12/05/24 09:01 12/05/24 09:16 Pulse Rate 96 98 101 H Blood Pressure 117/73 105/66 118/71 Oxygen Delivery 12/05/24 09:31 12/05/24 09:46 12/05/24 10:00 Pulse Rate 115 H 104 H 103 H Blood Pressure 156/89 H 130/87 123/92 H Oxygen Delivery 12/05/24 10:04 12/05/24 10:16 Pulse Rate 104 H 100 Blood Pressure 127/83 129/88 Oxygen Delivery Exam Const: General: comfortable and no acute distress Eyes: General: appearance normal, both eyes and all related structures Resp: Effort & Inspection: normal respiratory effort Cardio: Rate: regular rate Extrem: General: normal to inspection Psych: Mental Status: mental status grossly normal H&P: Results Labs Labs: Short CBC 12/05/24 Range/Units 06:17 WBC 6.0 (4.5-10.0) K/mm3 Hgb 9.5 L (12.0-15.0) g/dL Hct 30.5 L (37.0-47.0) % Plt Count 209 (150-375) k/mm3 Assessment and Plan Assessment and plan (1) Encounter for elective induction of labor: Code(s): Z34.90 - Encounter for supervision of normal , unspecified, unspecified trimester Status: Acute Assessment and Plan: - suspected LGA fetus with EFW 95%, AC 99% - FHR category I - cytotec 50mcg buccally at 0700
[2024-12-05] MEDS: OXYTOCIN 30 UNITS/NS 500 ML 30 UNITS/500 ML BAG IV CONT (11:06)
--- NOTE | 2024-12-05 12:46 | PM.OBPNLAB ---
Pain Control Date/time seen: 12/05/24 12:46 Pain control: tolerating well Pelvic Exam Dilation (cm): 4 Effacement (%): 60 station: -2 Amniotic membrane status: Ruptured (AROM of clear fluid) Contractions Monitor mode: External Contraction frequency: 3 Contraction pattern: Regular Status status: Category l Assessment and Plan Pitocin rate (mU/min): 6 Assessment: induction ongoing Plan: continuous present management
[2024-12-05] MEDS: AMPICILLIN SODIUM 1 GM in SODIUM CHLORIDE 0.9% IV 50 ML 100 ML IVPB ×3 (12:47→22:17)
[2024-12-05] MEDS: fentaNYL CITRATE INJ (*CRX) 100 MCG/2 ML VIAL 50 MCG IV PUSH ×2 (17:20→17:39)
[2024-12-05] MEDS: ONDANSETRON INJ 4 MG/2 ML VIAL IV PUSH (18:52)
[2024-12-05] MEDS: ACETAMINOPHEN 500 MG TABLET 1000 MG PO (22:15)
[2024-12-05] MEDS: GENTAMICIN 80MG/SOD CHL 50 ML 80 MG/50 ML BAG 100 MG IVPB (23:37)
[2024-12-06] VITALS (54 sets, daily range): BP systolic 80–152; BP diastolic 40–89; PULSE 100–159; RESP 16–19; TEMP 36.4–37.3; O2SAT 96–100; BMI 35.2
[2024-12-06] MEDS: CLINDAMYCIN 900 MG/D5W 50 ML 900 MG/50 ML PIGGYBACK 50 MG IVPB (00:11)
[2024-12-06] MEDS: ONDANSETRON INJ 4 MG/2 ML VIAL IV PUSH (04:06)
[2024-12-06 04:58] LABS: Hematocrit 27.1 % (37.0-47.0); Hemoglobin 8.6 g/dL (12.0-15.0); Mean Corpuscular HGB Conc 31.7 g/dl (32-36); Mean Corpuscular Hemoglobin 26.7 pg (26-34); Mean Corpuscular Volume 84.2 fl (80-100); Platelet Count Result 152 k/mm3 (150-375); Red Blood Count 3.22 M/mm3 (4.2-5.4); White Blood Count 15.7 K/mm3 (4.5-10.0)
[2024-12-06 05:10] LABS: INR 1.2; Partial Thromboplastin Time 27.3 Seconds (22.3-36.8); Prothrombin Time 15.3 Seconds (11.1-14.7)
[2024-12-06 05:11] LABS: Fibrinogen 250 mg/dl (215-510)
[2024-12-06 05:17] LABS: Alanine Aminotransferase 14 U/L (6-35); Albumin Level 1.9 g/dL (3.5-5.1); Alkaline Phosphatase 143 U/L (38-126); Anion Gap 9 mmol/L (4-12); Aspartate Amino Transferase 29 U/L (14-36); Bilirubin,Total 0.3 mg/dL (0.2-1.3); Blood Urea Nitrogen 6 mg/dL (7-17); Calcium 7.8 mg/dL (8.4-10.2); Carbon Dioxide 14 mmol/L (22-30); Chloride 107 mmol/L (98-107); Estimated Glomerular Filt Rate > 60; Glucose 151 mg/dL (65-110); Potassium 4.2 mmol/L (3.4-5.0); Sodium 130 mmol/L (137-145); Total Protein 4.1 g/dL (6.3-8.2)
[2024-12-06 05:54] LABS: Magnesium 1.3 mg/dL (1.6-2.3)
[2024-12-06] MEDS: MORPHINE SULFATE INJ (*CRX) 10 MG/ML AMP 2.5 MG IV PUSH ×4 (06:39→08:20)
--- NOTE | 2024-12-06 06:54 | W.PM.OBCSD ---
OB - Delivery Note Procedure Delivery date: 12/06/24 Pre-op diagnosis: Arrest of Decent Post-op Diagnosis: Same (Intrapartum hemorrhage) Induction method: AROM and Per Pitocin Protocol Delivery monitor: External FHT and External Uterine Procedure Performed: Primary (With repair of vaginal laceration) Surgeon: Nikita Connelly MD Anesthesia type: Epidural Description of Procedure/Findings: The patient was taken the operating room.? She was prepped and draped in dorsal supine position with a leftward tilt.? This was done after spinal anesthetic was applied.? A low-transverse skin incision was made and carried down till of the fascia with the knife.? The fascial incision was made with the knife.? The fascial incision was extended laterally with Mccray scissors.? The fascia was tented upward superiorly and inferiorly the rectus muscles were dissected off bluntly.? The rectus muscles were the midline.? The preperitoneal fat and peritoneum were dissected open bluntly at the superior aspect of the rectus muscles.? The peritoneal incision was extended superior and inferior with good position of bladder.? The uterine incision was made with a scalpel down to the level of the amniotic cavity.? The amniotic cavity was entered bluntly.? The infant was delivered.? The cord was clamped and cut and the infant was handed off to waiting pediatric staff.? Cord bloods were obtained.? The placenta was removed manually.? The uterus was exteriorized.? The uterus was cleared of all clots, debris and membranes.? The uterus was closed in 0 Vicryl running lock fashion.? An imbricating over a was placed along the incision line as well.? The uterus was returned to the abdomen.? The gutters were cleared of all clots and debris.? The fascia was closed with 0 Vicryl running fashion.? The subcutaneous tissue was irrigated pinpoint bleeders were cauterized.? The skin was closed with subcuticular absorbable brandon.? The skin incision line was covered with glue.? The patient tolerated the procedure well.? She has taken recovery room in stable condition.? Sponge lap and needle counts were correct x2.? Vagina was examined and vaginal laceration was repaired with a pair [id number] sutures at the midline distal vagina. Estimated Blood Loss: 2,000 Urine Output: 150 Complications: Other complications (Intrapartum hemorrhage that occurred from the vaginal laceration from the attempted vaginal .) Condition: Stable Disposition: PACU
--- NOTE | 2024-12-06 06:57 | PM.OBPNVD ---
OB - PN: Subj Subjective Date/time seen: 12/06/24 06:57 Interval history: Attempted to repair vaginal laceration in the room, labor delivery room. There was heavy blood loss. There was poor lighting. Limited suction and visibility. The hemorrhage there became excessive. Patient showing physical signs of significant blood loss. Some nonreassuring heart tones appropriate quick movement to the suite. OB - PN: Obj Data Labs 12/06/24 Unknown 12/06/24 Unknown Labs: Laboratory Results - last 24 hr 12/05/24 12/06/24 06:17 Unknown WBC 15.7 H RBC 3.22 L Hgb 8.6 L Hct 27.1 L MCV 84.2 MCH 26.7 MCHC 31.7 L RDW 15.4 H Plt Count 152 MPV 10.6 H PT 15.3 H INR 1.2 APTT 27.3 Fibrinogen 250 D-Dimer 9.94 H Sodium 130 L Potassium 4.2 Chloride 107 Carbon Dioxide 14 L Anion Gap 9 BUN 6 L Creatinine 0.99 Estim Creat Clear Calc Not Reportable Estimated GFR > 60 Glucose 151 H Calcium 7.8 L Magnesium 1.3 L Total Bilirubin 0.3 Direct Bilirubin 0.0 AST 29 ALT 14 Alkaline Phosphatase 143 H Total Protein 4.1 L Albumin 1.9 L Syphilis IgG/IgM Ab Non-reactive Blood Type O Positive Antibody Screen Negative Crossmatch See Detail Imaging Radiologist's impression: Impressions Abdomen X-Ray 12/06/24 06:05 Impression: 1: Serpiginous linear structure in the pelvis located centrally, likely foreign body. Clinically correlate. Abdomen X-Ray 12/06/24 06:06 Impression: 1: Interval removal of serpiginous radiodensity in the pelvis, consistent with foreign body removal. OB - PN A/P Time Spent With Patient Time: Total time spent is greater than 50% in coordination of care (as documented) at patient's floor/unit and/or counseling patient:
--- NOTE | 2024-12-06 08:16 | P.PCNOB_ITS ---
OB - Delivery Note Procedure Delivery date: 12/06/24 Pre-op diagnosis: Failed Induction of Labor Post-op Diagnosis: Same Induction method: AROM and Per Pitocin Protocol Procedure Performed: Primary Surgeon: Nikita Connelly MD Anesthesia type: Epidural Description of Procedure/Findings: The patient was taken the operating room.? She was prepped and draped in dorsal supine position with a leftward tilt.? This was done after spinal anesthetic was applied.? A low-transverse skin incision was made and carried down till of the fascia with the knife.? The fascial incision was made with the knife.? The fascial incision was extended laterally with Mccray scissors.? The fascia was tented upward superiorly and inferiorly the rectus muscles were dissected off bluntly.? The rectus muscles were the midline.? The preperitoneal fat and peritoneum were dissected open bluntly at the superior aspect of the rectus muscles.? The peritoneal incision was extended superior and inferior with good position of bladder.? The uterine incision was made with a scalpel down to the level of the amniotic cavity.? The amniotic cavity was entered bluntly.? The infant was delivered.? The cord was clamped and cut and the was handed off to waiting pediatric staff.? Cord bloods were obtain ed.? The placenta was removed manually.? The uterus was exteriorized.? The uterus was cleared of all clots, debris and membranes.? The uterus was closed in 0 Vicryl running lock fashion.? An imbricating over a was placed along the incision line as well.? The uterus was returned to the abdomen.? The gutters were cleared of all clots and debris.? The fascia was closed with 0 Vicryl running fashion.? The subcutaneous tissue was irrigated pinpoint bleeders were cauterized.? The skin was closed with subcuticular absorbable brandon.? The skin incision line was covered with glue.? The patient tolerated the procedure well.? She has taken recovery room in stable condition.? Sponge lap and needle counts were correct x2.? Urine Output: 150 Pathology: None sent Complications: No immediate complications Condition: Stable Disposition: Floor
[2024-12-06] MEDS: OXYTOCIN 30 UNITS/NS 500 ML 30 UNITS/500 ML BAG 125 UNITS (09:00)
--- NOTE | 2024-12-06 10:00 | PC.NURSE ---
Introductions were made, then consulted with patient to assess needs related to . Mother states that she is too tired and weak to breastfeed and/or pump at this time. Expressed the importance of pumping after delivery if not placing infant to breast. Mother denies wanting to do either at this time. Encouraged parents to do skin to skin with and call this RN when ready to breastfeed and/or pump.
[2024-12-06 10:27] LABS: Hematocrit 26.0 % (37.0-47.0); Hemoglobin 8.6 g/dL (12.0-15.0); Immature Granulocyte Percent A 0.4 % (0-0.5); Lymphocytes Absolute Auto 0.97 K/mm3 (0.9-3.2); Mean Corpuscular HGB Conc 33.1 g/dl (32-36); Mean Corpuscular Hemoglobin 27.4 pg (26-34); Mean Corpuscular Volume 82.8 fl (80-100); Nucleated Red Blood Cells Absolute Auto 0.030 K/mm3 (0.0-0.012); Nucleated Red Blood Cells Perc 0.2 % (0.0-0.2); Platelet Count Result 146 k/mm3 (150-375); Red Blood Count 3.14 M/mm3 (4.2-5.4); White Blood Count 15.6 K/mm3 (4.5-10.0)
--- NOTE | 2024-12-06 10:49 | PC.NURSE ---
Called Dr Connelly, reported most recent hemoglobin levels. Orders to resume tylenol/tordol per [facility]As protocol at this time.
[2024-12-06] MEDS: ACETAMINOPHEN 500 MG TABLET 1000 MG PO ×3 (11:06→23:33)
[2024-12-06] MEDS: SIMETHICONE 80 MG TAB.CHEW PO ×2 (11:06→17:08)
[2024-12-06] MEDS: KETOROLAC 15 MG/ML VIAL (*BKC) IV PUSH ×3 (11:07→23:32)
[2024-12-06] MEDS: DOCUSATE SODIUM 100 MG CAPSULE PO (17:08)
[2024-12-06] MEDS: DEXTROSE 5%/0.45% SOD CHL 1,000 ML 125 ML IV CONT (21:13)
[2024-12-06] MEDS: AMITRIPTYLINE HCL 25 MG TABLET 50 MG PO (21:15)
[2024-12-07 00:30] VITALS: BP 122/73; PULSE 108; RESP 16; TEMP 36.7; O2SAT 99
[2024-12-07 04:15] VITALS: BP 116/76; PULSE 103; RESP 16; TEMP 36.4; O2SAT 99
[2024-12-07 04:28] LABS: Hematocrit 22.6 % (37.0-47.0); Hemoglobin 7.4 g/dL (12.0-15.0); Immature Granulocyte Percent A 0.7 % (0-0.5); Lymphocytes Absolute Auto 1.94 K/mm3 (0.9-3.2); Mean Corpuscular HGB Conc 32.7 g/dl (32-36); Mean Corpuscular Hemoglobin 27.5 pg (26-34); Mean Corpuscular Volume 84.0 fl (80-100); Nucleated Red Blood Cells Absolute Auto 0.000 K/mm3 (0.0-0.012); Nucleated Red Blood Cells Perc 0.0 % (0.0-0.2); Platelet Count Result 170 k/mm3 (150-375); Red Blood Count 2.69 M/mm3 (4.2-5.4); White Blood Count 14.3 K/mm3 (4.5-10.0)
[2024-12-07] MEDS: IBUPROFEN 600 MG TABLET PO ×4 (05:48→23:36)
[2024-12-07] MEDS: ACETAMINOPHEN 500 MG TABLET 1000 MG PO ×4 (05:48→23:36)
[2024-12-07] MEDS: oxyCODONE HCL (*CRX) 5 MG TAB IR PO ×2 (06:57→14:47)
[2024-12-07] MEDS: WITCH HAZEL 40 PADS 1 PAD (06:58)
[2024-12-07] MEDS: BENZOCAINE 20% AER SPR (*SP) 56 GM CAN 1 SPRAY (06:58)
--- NOTE | 2024-12-07 08:01 | PM.OBPNVD ---
OB - PN: Subj Subjective Date/time seen: 12/07/24 08:01 Interval history: pp day 1 s/p doing well up in chair, baby doing well OB - PN: Obj Data Labs 12/07/24 04:14 12/06/24 Unknown Labs: Laboratory Results - last 24 hr 12/05/24 12/06/24 12/07/24 06:17 10:18 04:14 WBC 15.6 H 14.3 H RBC 3.14 L 2.69 L Hgb 8.6 L 7.4 L Hct 26.0 L 22.6 L MCV 82.8 84.0 MCH 27.4 D 27.5 MCHC 33.1 32.7 RDW 15.1 H 15.7 H Plt Count 146 L 170 MPV 11.1 H 10.4 Immature Gran % (Auto) 0.4 0.7 H Neut % (Auto) 86.1 H 79.2 H Lymph % (Auto) 6.2 L 13.5 L [place] % (Auto) 7.2 6.1 Eos % (Auto) 0.0 0.4 Baso % (Auto) 0.1 L 0.1 L Lymph # (Auto) 0.97 1.94 [place] # (Auto) 1.1 H 0.9 H Eos # (Auto) 0.0 0.1 Baso # (Auto) 0.0 0.0 Abs Immat Gran (auto) 0.07 H 0.10 H Absolute Neuts (auto) 13.4 H 11.3 H Absolute Nucleated RBC 0.030 H 0.000 Nucleated RBC % 0.2 0.0 Blood Type O Positive Antibody Screen Negative Crossmatch See Detail OB - PN A/P Plan day: 1 Plan: routine care Comments: plan IV iron Time Spent With Patient Time: Total time spent is greater than 50% in coordination of care (as documented) at patient's floor/unit and/or counseling patient: Review of Systems Review of Systems: All systems reviewed & are unremarkable except as noted in HPI and below Exam Const: General: cooperative, healthy appearing and comfortable Chest: Chest palpation & inspection: normal inspection of the chest Resp: Effort & Inspection: normal respiratory effort Cardio: Rate: regular rate GI: Other: incision CDI
[2024-12-07 08:10] VITALS: BP 130/85; PULSE 113; RESP 16; TEMP 36.6; O2SAT 98
[2024-12-07] MEDS: DOCUSATE SODIUM 100 MG CAPSULE PO ×2 (08:59→17:30)
[2024-12-07] MEDS: MULTIVIT/MIN/PREN/FOL AC/IRON TABLET 1 TAB PO (08:59)
[2024-12-07] MEDS: SIMETHICONE 80 MG TAB.CHEW PO ×3 (08:59→17:30)
[2024-12-07] MEDS: IRON SUCROSE COMPLEX 400 MG in SODIUM CHLORIDE 0.9% IV 250 ML 108 MG IVPB (09:42)
--- NOTE | 2024-12-07 10:05 | WPDANLDPN2 ---
Anes-Prog Note L&D Date/Time: 12/07/24 10:05 Comfortable throughout: section (Converted to for intolerance to labor) Neuraxial method: epidural Epidural/Spinal procedure site: clean & non-tender Neuro status: Neuro function grossly intact. Cardiovascular status: normal Respiratory status: normal Airway patency: baseline Mental status: baseline Post-Op hydration status: normal Vital Signs: Last Vital Signs Temp 36.6 C 12/07/24 08:10 Pulse 113 H 12/07/24 08:10 Resp 16 12/07/24 08:10 BP 130/85 12/07/24 08:10 Pulse Ox 98 12/07/24 08:10 O2 Del Method Room Air 12/06/24 08:40 Pain score (VAS): 3/10 I/O: Intake & Output 12/06/24 12/07/24 12/07/24 23:59 07:59 15:59 Output Total 900 425 Balance -900 -425 Post-procedural complaints: none Patient feedback: Patient satisfied with anesthetic care.
--- NOTE | 2024-12-07 10:06 | WPDANLDNPN2 ---
Anes-Prog Note L&D-Neuraxial Date/Time: 12/07/24 10:06 Neuraxial medications: epidural PF morphine Opiod-related complaints: none Patient feedback: Patient satisfied with post-operative pain management.
--- NOTE | 2024-12-07 16:25 | PC.NURSE ---
Patient requesting assistance. Baby is swaddled and being held by dad. He is alert and when placed near the breast he opens wide and latches easily. He is positioned well in football hold on the right breast. He suckles intermittently and multiple swallows were heard. Mom taught how to observe a deep latch, listen for swallows, and position baby so that his chin is on the breast. Mom stimulates him to suck when he takes a long pause. Education provided to both parents about milk production, pumping, burping, and supplementation. Mom is still very weak and only wants to feed from one breast at this time. Baby did about 10 minutes at breast before letting go. Dad was going to give a formula bottle while mom rests. Primary RN updated.
--- NOTE | 2024-12-07 17:06 | PCCCNOTE ---
Met with pt. and provided information for post partem resources. Noticed that pt. already had information in her welcome OB folder. Went over information and encouraged pt. to utilize if needed. Pt. denies any other case management needs.
[2024-12-07 19:48] VITALS: BP 126/85; PULSE 107; RESP 16; TEMP 36.7; O2SAT 100
[2024-12-07] MEDS: LIDOCAINE 5% PATCH 1 PATCH TRANSDERM (20:17)
[2024-12-07] MEDS: AMITRIPTYLINE HCL 25 MG TABLET 50 MG PO (21:02)
[2024-12-08] MEDS: IBUPROFEN 600 MG TABLET PO ×3 (05:30→18:56)
[2024-12-08] MEDS: ACETAMINOPHEN 500 MG TABLET 1000 MG PO ×3 (05:30→18:56)
[2024-12-08 08:02] VITALS: BP 128/80; PULSE 95; RESP 16; TEMP 36.6; O2SAT 99
[2024-12-08] MEDS: SIMETHICONE 80 MG TAB.CHEW PO ×3 (08:25→16:39)
[2024-12-08] MEDS: MULTIVIT/MIN/PREN/FOL AC/IRON TABLET 1 TAB PO (08:26)
[2024-12-08] MEDS: DOCUSATE SODIUM 100 MG CAPSULE PO ×2 (08:26→16:39)
--- NOTE | 2024-12-08 09:11 | P.PNOB_ITS ---
OB - PN: Subj Subjective Date/time seen: 12/08/24 09:11 Interval history: pp day 2 s/p flatus present baby doing well OB - PN: Obj Data Labs 12/07/24 04:14 12/06/24 Unknown OB - PN A/P Plan day: 2 Plan: routine care Time Spent With Patient Time: Total time spent is greater than 50% in coordination of care (as documented) at patient's floor/unit and/or counseling patient: Review of Systems 2 Review of Systems: All systems reviewed & are unremarkable except as noted in HPI and below Exam 2 Const: General: cooperative, healthy appearing and comfortable Chest: Chest palpation & inspection: normal inspection of the chest Resp: Effort & Inspection: normal respiratory effort Cardio: Rate: regular rate GI: Other: incision CDI Back/Spine/Pelvis: Back: no CVA tenderness Skin: General skin exam: normal color Extrem: General: normal to inspection Psych: Appearance: grossly normal
--- NOTE | 2024-12-08 10:00 | PC.NURSE ---
Introductions were made and services offered. Resources provided for inpatient and outpatient services with the feeding sheet, mom/baby guide and name written on the communication board. Mother voiced understanding of information and will call if there is a request for assistance. Reported to the Primary RN.
[2024-12-08 19:00] VITALS: BP 141/94; PULSE 108; RESP 16; TEMP 36.7; O2SAT 100
--- NOTE | 2024-12-08 19:54 | PHAR ---
home med verified amitriptyline 50mg tablets 1 hs
[2024-12-08] MEDS: LIDOCAINE 5% PATCH 1 PATCH TRANSDERM (19:59)
[2024-12-08] MEDS: AMITRIPTYLINE HCL 50 MG 1 EACH PO (21:00)
[2024-12-09] MEDS: ACETAMINOPHEN 500 MG TABLET 1000 MG PO ×2 (01:01→07:30)
[2024-12-09] MEDS: IBUPROFEN 600 MG TABLET PO ×2 (01:02→07:29)
[2024-12-09] MEDS: SIMETHICONE 80 MG TAB.CHEW PO (07:28)
[2024-12-09] MEDS: DOCUSATE SODIUM 100 MG CAPSULE PO (07:29)
[2024-12-09] MEDS: MULTIVIT/MIN/PREN/FOL AC/IRON TABLET 1 TAB PO (07:29)
[2024-12-09 07:30] VITALS: BP 139/86; PULSE 83; RESP 16; TEMP 36.4; O2SAT 100
--- NOTE | 2024-12-09 07:54 | PC.NURSE ---
Patient viewed the discharge video Mother & Baby Care, The First Two Weeks. Patient was given the opportunity and encouraged to ask questions. Patient verbalized understanding of information shared and has been given the mother/baby guide for home reference.
--- NOTE | 2024-12-09 09:02 | P.PNOB_ITS ---
OB - PN: Subj Subjective Date/time seen: 12/09/24 09:02 Interval history: pp day 3 s/p doing well baby doing well OB - PN: Obj Data Labs 12/07/24 04:14 12/06/24 Unknown OB - PN A/P Plan day: 3 Plan: routine care and discharge home Time Spent With Patient Time: Total time spent is greater than 50% in coordination of care (as documented) at patient's floor/unit and/or counseling patient: Review of Systems 2 Review of Systems: All systems reviewed & are unremarkable except as noted in HPI and below Exam 2 Const: General: cooperative, healthy appearing and comfortable Chest: Chest palpation & inspection: normal inspection of the chest Resp: Effort & Inspection: normal respiratory effort Cardio: Rate: regular rate GI: Other: incision CDI Back/Spine/Pelvis: Back: no CVA tenderness Skin: General skin exam: normal color
--- NOTE | 2024-12-09 09:08 | PM.OBDSVD ---
DS: Admitting Diagnosis Discharge Date 12/09/24 Admitting Diagnosis IOL DS: Discharge Diagnosis Discharge Diagnosis (1) Delivery by section: Status: Acute (2) hemorrhage: Code(s): O72.1 - Other immediate hemorrhage Status: Acute OB - DS: Summary OB Procedures : None OB Procedures Intrapartum: OB Procedures: : Transfusion Peripartum Data Procedures: Procedures Operation Date: 12/06/24 04:12 Actual Procedure Side Surgeon p Section Bilateral Nikita Connelly MD Time Spent with Patient Time attestation: Total time spent providing and/or coordinating discharge services: Discharge Plan Discharge Attending physician on discharge: Nikita Connelly Discharging Clinician: Hazel Sandoval Patient Disposition: Home Activity: pelvic rest Diet: regular Patient Instructions: Antibiotic Form Patient Language: Belarusian Stand Alone Forms: General Discharge Information Follow-up/Referrals: Julio Mary MD [Physician] - (1 week md castro or 4 weeks) Discharge Medications: New oxycodone 5 mg Tablet 5 mg PO Q4H PRN (Reason: Pain Rated 4-6) 7 Days Qty: 25 0RF Continued amitriptyline 50 mg tablet 50 mg PO HS PNV no.95-ferrous fumarate-FA [] 28 mg iron- 800 mcg tablet 1 tablet PO DAILY Date of admission: 12/05/24 05:56 Primary Care Provider: Radha,Jeanette Burch Admitting Provider: Julio Mary Attending physician on admission: Julio Mary Condition: Stable
[2024-12-10 08:55] VITALS: BP 130/84; PULSE 87; RESP 18; TEMP 36.6; O2SAT 99
--- NOTE | 2025-01-01 18:45 | WPDHPUPDATE1 ---
History and Physical Update Update Date/Time: 01/01/25 18:45 History and Physical has been reviewed, including an updated exam of the patient. There are NO changes in the patient's condition. Risks, benefits, and alternatives have been discussed and questions answered. Patient agrees to proceed with procedure.
== END 2024-12-09 13:30 | disposition home or self-care (01) | DRG 788 ==
LOC: ANHLDR 05:59 → ANHOB2 12-06 08:36
PROVIDERS: Advanced Practice Midwife; Obstetrics & Gynecology; Admitting Provider Obstetrics & Gynecology; PCP Nurse Practitioner; Visit Provider Obstetrics & Gynecology
PROC: 10D00Z1 Extraction of Products of Conception, Low, Open Approach (ICD-10-PCS; CPT 59514; principal; 2024-12-06 03:40)
DX: O62.1 Secondary uterine inertia (principal); O36.63X0 Maternal care for excessive fetal growth, third trimester, not applicable or unspecified; O67.8 Other intrapartum hemorrhage; O70.1 Second degree perineal laceration during delivery; O61.9 Failed induction of labor, unspecified; Z3A.39 39 weeks gestation of pregnancy; Z37.0 Single live birth
CPT/HCPCS: 36415; 36430; 74018; 80053; 82248; 83735; 85025; 85027; 85380; 85384; 85730; 86593; 86850; 86900; 86901; 86923; A9270; J0290; J1580; J1756; J1885; J2004; J2270; J2274; J2371; J2405; J2590; J2795; J3010; J7050; J7120; P9012; P9016; P9017

== ENCOUNTER 2024-12-25 09:56 | Outpatient (RCR) | payer BC, SELFPAY ==
--- NOTE | 2024-12-25 10:30 | PC.NURSE ---
In- 1000 Out- 1030 Reason for visit: Weighted Feed, Latch Issues History: Valentina delivered Baby Angel Richard on 12/06/2024 by primary Section for failure to progress. Valentina is a who delivered at 39w1d. Valentina is here today for a weighted feed and a latch check. Baby angel Richard has a follow up weight check next week with Radha Mendoza MD to follow up for weight loss. Observations: Valentina handles Jose Manuel independently and confidently. Jose Manuel was easy to wake and eager to feed. Valentina placed Jose Manuel in the cross cradle position and he was able to latch optimally to the left breast. Feeding continued for approximately 2 minutes before Jose Manuel began slipping off of the breast and sucking on the tip of mothers nipple. RN demonstrated how to maintain a deeper latch - by cupping the breast and keeping close during the entirety of the feeding. Mother was able to maintain this optimal latch for the remainder of the feeding which lasted 5 additional minutes. relaxed and satisfied after this feeding. Mother denies any pain during/after feeding. Mother states that nursed at 8:45 a.m. and fed a little earlier than usual which led to a shorted feeding at this visit. A weighted feed was conducted per maternal request. Pre-feed weight: 4817g 10lb 9.9oz Post-feed weight: 4850g 10lb 11oz Volume transferred: 1.1oz (7 minutes) Plan of Care: Call assistant basketball coach if concerns arise regarding weight gain. Follow up plans: RN will follow up by telephone on 12/27/24. Mother and Jose Manuel will follow up with Speech Language Therapist at scheduled visit for a follow up weight check.
== END 2025-03-25 23:59 | disposition home or self-care (01) ==
LOC: ANHOBOP 09:56
PROVIDERS: PCP Nurse Practitioner; Visit Provider Pediatrics
DX: Z39.1 Encounter for care and examination of lactating mother (principal)
CPT/HCPCS: 99212; G0463